=== PATIENT | male | born 1955 | race Caucasian/White ===

== ENCOUNTER 2016-08-13 20:05 | Emergency (ER) | payer SELFPAY ==
[~2016-08-13] VITALS: Ht 165.1 cm; Wt 70.4 kg
[~2016-08-13 20:05] MED LIST: CALAN SR,COVER240 MG PO; FIORICET 50-321 EACH PO; PRINIVIL40 MG PO
[2016-08-13] MEDS ORDERED: VALIUM5 MG PO (22:39)
[2016-08-13] MEDS ORDERED: MOTRIN800 MG PO (22:39)
[2016-08-13] MEDS ORDERED: NORCO 7.5/321 TABLET PO (22:39)
[2016-08-14 00:04] VITALS: BP 152/100
== END 2016-08-14 00:04 | disposition home or self-care (01) ==
LOC: EME 20:05
DX: M54.41 Lumbago with sciatica, right side (principal); I10 Essential (primary) hypertension; E78.5 Hyperlipidemia, unspecified
CPT/HCPCS: 99281; 99283

== ENCOUNTER 2016-08-23 02:31 | Emergency (ER) | payer BC ==
[~2016-08-23] VITALS: Ht 165.1 cm; Wt 71.4 kg
[~2016-08-23 02:31] MED LIST changes: +MOTRIN800 MG PO; +NORCO 7.5/321 TABLET PO; +VALIUM5 MG PO
[2016-08-23] MEDS ORDERED: PERCOCET 5/31 TABLET PO (04:57)
[2016-08-23 05:04] VITALS: BP 162/88
[2016-08-23 05:14] LABS: ADD MIUA? NO; BILIRUBIN NEGATIVE; BLOOD NEGATIVE; COLOR COLORLESS ((YELLOW)); GLUCOSE (STRIP) NEGATIVE; KETONES NEGATIVE; LEUKOCYTES NEGATIVE; NITRITE NEGATIVE; PROTEIN (STRIP) NEGATIVE; SPECIFIC GRAVITY 1.004 (1.000-1.030); UCUL ADDED? NO; UROBILINOGEN 0.2 MG/DL (0.2-1.0)
[2016-08-23 05:19] LABS: AMPHETAMINE NEGATIVE (500 ng/mL); BARBITURATES NEGATIVE (200 ng/mL); BENZODIAZEPINES NEGATIVE (150 ng/mL); COCAINE PRESUMPTIVE POSITIVE (150 ng/mL); METHADONE NEGATIVE (200 ng/mL); METHAMPHETAMINE NEGATIVE (500 ng/mL); OPIATES (MORPHINE) NEGATIVE (100 ng/mL); OXYCODONE PRESUMPTIVE POSITIVE (100 ng/mL); PHENCYCLIDINE NEGATIVE (25 ng/mL); PROPOXYPHENE NEGATIVE (300 ng/mL); THC CANNABINOIDS NEGATIVE (50 ng/mL); TRICYCLIC ANTIDEPRESSANTS NEGATIVE (300 ng/mL)
[2016-08-23 05:20] LABS: ADD MEDTOX COMMENT Y; INTERNAL CONTROLS VALID? YES
== END 2016-08-23 05:06 | disposition home or self-care (01) ==
LOC: EME 02:31 → EXP 02:31
PROVIDERS: Emergency Medicine
DX: M54.41 Lumbago with sciatica, right side (principal)
CPT/HCPCS: 81003; 84999; 99281; 99284